=== PATIENT | female | born 1950 | race Caucasian/White ===

== ENCOUNTER 2024-09-18 13:31 | Outpatient (CLI) | payer OTHER | END 2024-09-18 13:32 | disposition home or self-care (01) | LOC: CT 13:31 | PROVIDERS: ATTEND Obstetrics & Gynecology Gynecologic Oncology | DX: C54.1 Malignant neoplasm of endometrium (principal); K80.20 Calculus of gallbladder without cholecystitis without obstruction; I71.40 Abdominal aortic aneurysm, without rupture, unspecified; K82.8 Other specified diseases of gallbladder | CPT/HCPCS: 74176 ==